=== PATIENT | male | born 1980 | race Caucasian/White ===

== ENCOUNTER 2023-02-04 04:18 | Emergency (ER) | payer SELFPAY ==
[2023-02-04] MEDS ORDERED: Sodium Chloride 0.9% 1,000 ML IV ONE (04:45)
[2023-02-04 04:51] LABS: HEMATOCRIT 45.7 % (40.0-54.0); HEMOGLOBIN 15.6 g/dL (14.0-18.0); MEAN CORPUSCULAR HEMOGLOBIN 32.9 pg (27.0-34.0); MEAN CORPUSCULAR HGB CONC 34.1 g/dL (33.0-35.0); MEAN CORPUSCULAR VOLUME 96.4 fL (80-100); PLATELET COUNT,PLT 273 10^3/uL (150-450); RED BLOOD CELL COUNT 4.74 10^6/uL (4.6-6.2); WHITE BLOOD CELL COUNT,WBC 10.8 10^3/uL (5.0-10.0)
[2023-02-04 04:53] LABS: BASOPHILS PERCENT AUTO 1.4 % (0.0-1.0); EOSINOPHILS PERCENT AUTO 1.6 % (1.0-3.0); LYMPHOCYTES PERCENT AUTO 27.2 % (20.5-50.1); MONOCYTES PERCENT AUTO 14.2 % (2-8); NEUTROPHILS PERCENT AUTO 55.6 % (42.2-75.2)
[2023-02-04 05:05] LABS: BAND PERCENT MAN 4 %; EOSINOPHILS PERCENT MAN 1 % (1-3); LYMPHOCYTES PERCENT MAN 28 % (20-50); MONOCYTES PERCENT MAN 12 % (2-8); SEG NEUTROPHILS PERCENT MAN 55 % (42-75)
[2023-02-04 05:07] LABS: A/G RATIO 0.9; ALANINE AMINOTRANSFERASE,ALT 86 U/L (16-63); ALBUMIN 4.1 g/dL (3.4-5.0); ALKALINE PHOSPHATASE 70 U/L (46-116); ASPARTATE AMNIOTRANSFERASE,AST 62 U/L (15-37); BILIRUBIN TOTAL 0.4 mg/dL (0.2-1.0); BLOOD UREA NITROGEN,BUN 6 mg/dL (7-18); BUN/CREATININE RATIO 7.6 (No establ ref range); CARBON DIOXIDE,CO2 28 mmol/L (21-32); CHLORIDE,CL 104 mmol/L (98-107); CREATININE 0.79 mg/dL (0.70-1.30); GLUCOSE RANDOM 139 mg/dL (70-99); PROTEIN TOTAL,TP 8.8 g/dL (6.4-8.2); SODIUM,NA 143 mmol/L (136-145)
[2023-02-04 05:10] LABS: ESTIMATED GFR 113 mL/min (>=60); ETHANOL BLOOD MEDICAL 356 mg/dL (0)
== END 2023-02-04 05:49 ==
LOC: DL.ED 04:18
DX: F10.929 Alcohol use, unspecified with intoxication, unspecified (principal); G89.29 Other chronic pain; M25.512 Pain in left shoulder; R74.8 Abnormal levels of other serum enzymes; F17.210 Nicotine dependence, cigarettes, uncomplicated; V89.2XXA Person injured in unspecified motor-vehicle accident, traffic, initial encounter; Y92.410 Unspecified street and highway as the place of occurrence of the external cause
CPT/HCPCS: 36415; 70450; 72125; 80053; 80307; 85025; 96360; 99284; J7030